=== PATIENT | male | born 1965 | race Caucasian/White ===

== ENCOUNTER 2018-11-03 19:17 | Inpatient (IN) ==
--- NOTE | 2018-11-03 19:32 | Emergency Department Note ---
Disposition Clinical Impression: Elevated brain natriuretic peptide (BNP) level Chest pain Qualifiers: Chest pain type: unspecified Qualified Code(s): R07.9 - Chest pain, unspecified Volume overload Qualifiers: Hypervolemia type: unspecified Qualified Code(s): E87.70 - Fluid overload, unspecified Disposition: Admitted As Inpatient Condition: Good Referrals: Nitish Mahoney DO [Primary Care Provider] - Time of Disposition: 20:39 General Adult HPI - General Stated complaint: CP/TIGHTNESS Time Seen by Provider: 11/03/18 19:21 Source: patient, family Mode of arrival: ambulatory Limitations: no limitations Nursing Notes Reviewed: Yes Vital Signs Reviewed: Yes - History of Present Illness HPI Narrative: Patient is a 53-year-old male that presents the emergency department with reports of chest tightness located in the center of his chest. Patient states that it did radiate up into his left shoulder. Patient also reports shortness of breath and diaphoresis. Patient denies any nausea. Patient states that he has never had an SD or required stents with has had prior cardiac catheterization. Patient states that he does have a history of atrial fibrillation and has a pacemaker and has had a prior cardiac ablation. Patient also states that he has had increased swelling in bilateral lower tremors and takes 80 mg of Lasix a day. Patient states that she has had swelling and some small blisters on his legs that are broken open and had started to drain. - Related Data Home Medications Medication Instructions Recorded Confirmed Aspirin Enteric Coated [Aspirin EC] 81 mg PO QAM 02/06/15 02/06/15 Carvedilol [Coreg] 25 mg PO BID 02/06/15 02/06/15 Cyclobenzaprine [Flexeril] 10 mg PO QPM 02/06/15 02/06/15 Furosemide [Lasix] 40 mg PO BID 02/06/15 02/06/15 Warfarin [Coumadin] 2.5 mg PO Q48H PRN 02/06/15 02/06/15 Warfarin [Coumadin] 5 mg PO Q48H PRN 02/06/15 02/06/15 metFORMIN [Glucophage] 1,000 mg PO BID 02/06/15 02/06/15 Gabapentin [Neurontin] 100 mg PO 04/16/18 GlipiZIDE [Glucotrol Xl] 2.5 mg PO 04/16/18 Previous Rx's Medication Instructions Recorded cephALEXin [Cephalexin] 500 mg PO BID #20 tablet 04/16/18 Allergies Allergy/AdvReac Type Severity Reaction Status Date / Time No Known Allergies Allergy Verified 04/16/18 17:16 All systems ED: reviewed and negative except as stated. Constitutional: Denies: fever Cardiovascular: Reports: chest pain Respiratory: Reports: dyspnea Gastrointestinal: Denies: nausea, vomiting Neurological: Denies: weakness, numbness, paresthesias Past Medical History - Past Medical History Medical history: Reports: atrial fibrillation, diabetes Psychiatric history: Reports: no psych history - Social History Smoking Status: Never smoker Smokeless Tobacco Status: No Alcohol use: Reports: none Drug use: Reports: none Physical Exam - General Limitations: no limitations General appearance: alert, in no apparent distress - Head Head exam: atraumatic, normocephalic - Eye Eye exam: Present: normal appearance, EOMI - Neck Neck exam: Present: normal inspection, full ROM, trachea midline - Respiratory Respiratory exam: Present: normal lung sounds bilaterally. Absent: respiratory distress, wheezes - Cardiovascular Cardiovascular exam: Present: regular rate, normal rhythm, normal heart sounds, +S1, +S2 - Abdominal Exam Abdominal exam: Present: soft, Non-Tender, normal bowel sounds - Extremities Exam Extremities exam: Present: other (Patient has blisters on bilateral lower extremities. The blister on the left is open and draining.) - Neurological Exam Neurological exam: Present: alert, oriented X3 - Psychiatric Psychiatric exam: Present: normal affect, normal mood - Skin Skin exam: Present: warm, dry, other (Draining blisters on left lwoer extremities. ) Course Vital Signs Pulse Rate 70 11/03/18 19:39 Respiratory Rate 18 11/03/18 19:39 Blood Pressure 181/99 11/03/18 19:39 O2 Sat by Pulse Oximetry 95 11/03/18 19:39 Temperature 98.2 F 11/03/18 19:40 Pulse Rate 71 11/03/18 19:52 Respiratory Rate 18 11/03/18 19:52 Blood Pressure 155/77 11/03/18 19:52 O2 Sat by Pulse Oximetry 94 11/03/18 19:52 Oxygen Delivery Oxygen Delivery Room Air Medical Decision Making - MDM Narrative Medical decision making narrative: Due the patient presenting to the emergency department with reports of chest pain we will obtain basic laboratory testing, chest x-ray and EKG. patient's laboratory testing shows an elevated BNP. Troponin is negative. EKG did not show any acute ischemic changes. Patient patient's chest x-ray shows some cardiomegaly with vascular congestion. No signs of pneumonia or overt pulmonary edema. Patient will be admitted to the hospital due to a heart score of 4 and having chest pain while present here in the emergency department as well as having exertional component there is concern this could potentially be cardiac related. We will recommended the patient be admitted for trending of his troponin. Patient's family at bedside are in agreement with this plan. Patient's chest pain had improved with the nitroglycerin here in the emergency department. Called and spoke with the admitting hospitalist Dr. Medrano and he h as accepted the patient to their service. Patient will be admitted to the hospital for further evaluation and management. - Medical Records Medical records reviewed: Yes I reviewed the patient's medical records. - Lab Data Lab results reviewed: Yes I reviewed the patient's lab results. Result diagrams: 11/03/18 19:33 11/03/18 19:33 Lab Results 11/03/18 11/03/18 11/03/18 Range/Units 19:33 19:33 19:33 WBC 7.9 (4.3-11.1) K/mcL RBC 4.31 (4.19-5.50) M/mcL Hgb 13.7 (12.9-16.9) g/dL Hct 42.2 (37.5-50.1) % MCV 97.9 (83.0-100.0) fL MCH 31.8 (28.0-33.3) pg MCHC 32.5 (31.6-35.5) g/dL RDW 14.3 (11.5-14.5) % Plt Count 247 (140-400) K/mcL MPV 9.6 (9.4-12.4) fL Immature Gran % 0.3 (0-4) % Seg Neutrophils % 67.0 % Lymphocytes % 17.8 % Monocytes % 11.4 % Eosinophils % 3.0 % Basophils % 0.5 % Neutrophils # 5.3 (1.6-8.9) K/mcL Lymphocytes # 1.4 (0.6-4.6) K/mcL Monocytes # 0.9 (0.0-1.3) K/mcL Eosinophils # 0.2 (0.0-0.6) K/mcL Basophils # 0.0 (0.0-0.2) K/mcL PT 36.6 H (9.4-12.1) Seconds INR 3.2 APTT 56.1 H (26.0-36.0) Seconds Sodium (136-145) mEq/L Potassium (3.5-5.1) mEq/L Chloride (98-107) mEq/L Carbon Dioxide (23-29) mEq/L BUN (6-20) mg/dL Creatinine (0.70-1.30) mg/dL Est GFR ( Amer) (> 60) Est GFR (Non-Af Amer) (> 60) BUN/Creatinine Ratio (6-26) Glucose (70-105) mg/dL Calculated Osmolality (280-300) Calcium (8.6-10.3) mg/dL Troponin I (< 0.04) ng/mL B-Natriuretic Peptide 161 H (Less than 100) pg/mL 11/03/18 Range/Units 19:33 WBC (4.3-11.1) K/mcL RBC (4.19-5.50) M/mcL Hgb (12.9-16.9) g/dL Hct (37.5-50.1) % MCV (83.0-100.0) fL MCH (28.0-33.3) pg MCHC (31.6-35.5) g/dL RDW (11.5-14.5) % Plt Count (140-400) K/mcL MPV (9.4-12.4) fL Immature Gran % (0-4) % Seg Neutrophils % % Lymphocytes % % Monocytes % % Eosinophils % % Basophils % % Neutrophils # (1.6-8.9) K/mcL Lymphocytes # (0.6-4.6) K/mcL Monocytes # (0.0-1.3) K/mcL Eosinophils # (0.0-0.6) K/mcL Basophils # (0.0-0.2) K/mcL PT (9.4-12.1) Seconds INR APTT (26.0-36.0) Seconds Sodium 136 (136-145) mEq/L Potassium 4.2 (3.5-5.1) mEq/L Chloride 98 (98-107) mEq/L Carbon Dioxide 32 H (23-29) mEq/L BUN 17 (6-20) mg/dL Creatinine 1.03 (0.70-1.30) mg/dL Est GFR ( Amer) > 60 (> 60) Est GFR (Non-Af Amer) > 60 (> 60) BUN/Creatinine Ratio 17 (6-26) Glucose 113 H (70-105) mg/dL Calculated Osmolality 284 (280-300) Calcium 9.2 (8.6-10.3) mg/dL Troponin I < 0.03 (< 0.04) ng/mL B-Natriuretic Peptide (Less than 100) pg/mL - Radiology Data Radiology results reviewed: Yes I reviewed the patient's radiology results. Chest X-Ray 11/03/18 20:18 IMPRESSION: Cardiomegaly with pulmonary vascular congestion D/ / Duane Hawkins MD / Duane Hawkins MD Interpreting Provider: Duane Hawkins MD - EKG Data EKG #1 EKG attestation: Yes I reviewed and interpreted this EKG. EKG results narrative: EKG shows an accelerated junctional rhythm at a rate of 71 beats per minute, QRS duration 165, QTC of 479. There is no evidence of STEMI and EKG. Attestation Statement - Attestation Attestation: Joe Cheung D.O., examined this patient and my medical decision-making was reviewed with the Resident Physician. I agree with the documented findings, disposition and treatment plan as described except to the extent set forth below.
[2018-11-03] MEDS ORDERED: Aspirin 81 MG TAB.CHEW PO STA (19:33)
[2018-11-03] MEDS: Nitroglycerin 0.4 MG TAB.SUBL SL SCH ×2 (19:47→22:54)
[2018-11-03 19:51] LABS: Basophils % 0.5 %; Eosinophils # 0.2 K/mcL (0.0-0.6); Hematocrit 42.2 % (37.5-50.1); Hemoglobin 13.7 g/dL (12.9-16.9); Immature Granulocytes % 0.3 % (0-4); Lymphocytes # 1.4 K/mcL (0.6-4.6); Lymphocytes % 17.8 %; Mean Corpuscular HGB Conc 32.5 g/dL (31.6-35.5); Mean Corpuscular Hemoglobin 31.8 pg (28.0-33.3); Mean Corpuscular Volume 97.9 fL (83.0-100.0); Mean Platelet Volume 9.6 fL (9.4-12.4); Monocytes # 0.9 K/mcL (0.0-1.3); Monocytes % 11.4 %; Neutrophils # 5.3 K/mcL (1.6-8.9); Platelet Count 247 K/mcL (140-400); Red Blood Count 4.31 M/mcL (4.19-5.50); Red Cell Distribution Width 14.3 % (11.5-14.5); White Blood Count 7.9 K/mcL (4.3-11.1)
[2018-11-03 19:59] LABS: INR 3.2; Prothrombin Time 36.6 Seconds (9.4-12.1)
[2018-11-03 20:01] LABS: Activated Partial Thrombo Time 56.1 Seconds (26.0-36.0)
--- NOTE | 2018-11-03 20:02 | Emergency Department Note ---
Disposition Clinical Impression: Chest pain Qualifiers: Chest pain type: unspecified Qualified Code(s): R07.9 - Chest pain, unspecified Volume overload Qualifiers: Hypervolemia type: unspecified Qualified Code(s): E87.70 - Fluid overload, unspecified Disposition: Admitted As Inpatient Condition: Good Referrals: Nitish Mahoney DO [Primary Care Provider] - Time of Disposition: 20:31 General Adult HPI - General Chief complaint: ED Chest Pain Stated complaint: CP/TIGHTNESS Time Seen by Provider: 11/03/18 19:21 Source: patient, family Mode of arrival: ambulatory Limitations: no limitations - History of Present Illness Pain Scale: 4 - Related Data Home Medications Medication Instructions Recorded Confirmed Aspirin Enteric Coated [Aspirin EC] 81 mg PO QAM 02/06/15 02/06/15 Carvedilol [Coreg] 25 mg PO BID 02/06/15 02/06/15 Cyclobenzaprine [Flexeril] 10 mg PO QPM 02/06/15 02/06/15 Furosemide [Lasix] 40 mg PO BID 02/06/15 02/06/15 Warfarin [Coumadin] 2.5 mg PO Q48H PRN 02/06/15 02/06/15 Warfarin [Coumadin] 5 mg PO Q48H PRN 02/06/15 02/06/15 metFORMIN [Glucophage] 1,000 mg PO BID 02/06/15 02/06/15 Gabapentin [Neurontin] 100 mg PO 04/16/18 GlipiZIDE [Glucotrol Xl] 2.5 mg PO 04/16/18 Previous Rx's Medication Instructions Recorded cephALEXin [Cephalexin] 500 mg PO BID #20 tablet 04/16/18 Allergies Allergy/AdvReac Type Severity Reaction Status Date / Time No Known Allergies Allergy Verified 04/16/18 17:16 Constitutional: Denies: fever Cardiovascular: Reports: chest pain Respiratory: Reports: dyspnea Gastrointestinal: Denies: nausea, vomiting Neurological: Denies: weakness, numbness, paresthesias Past Medical History - Past Medical History Medical history: Reports: atrial fibrillation, diabetes Psychiatric history: Reports: no psych history - Social History Smoking Status: Never smoker Smokeless Tobacco Status: No Alcohol use: Reports: none Drug use: Reports: none Physical Exam - General Limitations: no limitations General appearance: alert, in no apparent distress Course Vital Signs Pulse Rate 70 11/03/18 19:39 Respiratory Rate 18 11/03/18 19:39 Blood Pressure 181/99 11/03/18 19:39 O2 Sat by Pulse Oximetry 95 11/03/18 19:39 Temperature 98.2 F 11/03/18 19:40 Pulse Rate 71 11/03/18 19:52 Respiratory Rate 18 11/03/18 19:52 Blood Pressure 155/77 11/03/18 19:52 O2 Sat by Pulse Oximetry 94 11/03/18 19:52 Oxygen Delivery Oxygen Delivery Room Air Medical Decision Making - Lab Data Result diagrams: 11/03/18 19:33 11/03/18 19:33 Lab Results 11/03/18 11/03/18 11/03/18 Range/Units 19:33 19:33 19:33 WBC 7.9 (4.3-11.1) K/mcL RBC 4.31 (4.19-5.50) M/mcL Hgb 13.7 (12.9-16.9) g/dL Hct 42.2 (37.5-50.1) % MCV 97.9 (83.0-100.0) fL MCH 31.8 (28.0-33.3) pg MCHC 32.5 (31.6-35.5) g/dL RDW 14.3 (11.5-14.5) % Plt Count 247 (140-400) K/mcL MPV 9.6 (9.4-12.4) fL Immature Gran % 0.3 (0-4) % Seg Neutrophils % 67.0 % Lymphocytes % 17.8 % Monocytes % 11.4 % Eosinophils % 3.0 % Basophils % 0.5 % Neutrophils # 5.3 (1.6-8.9) K/mcL Lymphocytes # 1.4 (0.6-4.6) K/mcL Monocytes # 0.9 (0.0-1.3) K/mcL Eosinophils # 0.2 (0.0-0.6) K/mcL Basophils # 0.0 (0.0-0.2) K/mcL PT 36.6 H (9.4-12.1) Seconds INR 3.2 APTT 56.1 H (26.0-36.0) Seconds Sodium (136-145) mEq/L Potassium (3.5-5.1) mEq/L Chloride (98-107) mEq/L Carbon Dioxide (23-29) mEq/L BUN (6-20) mg/dL Creatinine (0.70-1.30) mg/dL Est GFR ( Amer) (> 60) Est GFR (Non-Af Amer) (> 60) BUN/Creatinine Ratio (6-26) Glucose (70-105) mg/dL Calculated Osmolality (280-300) Calcium (8.6-10.3) mg/dL Troponin I (< 0.04) ng/mL B-Natriuretic Peptide 161 H (Less than 100) pg/mL 11/03/18 Range/Units 19:33 WBC (4.3-11.1) K/mcL RBC (4.19-5.50) M/mcL Hgb (12.9-16.9) g/dL Hct (37.5-50.1) % MCV (83.0-100.0) fL MCH (28.0-33.3) pg MCHC (31.6-35.5) g/dL RDW (11.5-14.5) % Plt Count (140-400) K/mcL MPV (9.4-12.4) fL Immature Gran % (0-4) % Seg Neutrophils % % Lymphocytes % % Monocytes % % Eosinophils % % Basophils % % Neutrophils # (1.6-8.9) K/mcL Lymphocytes # (0.6-4.6) K/mcL Monocytes # (0.0-1.3) K/mcL Eosinophils # (0.0-0.6) K/mcL Basophils # (0.0-0.2) K/mcL PT (9.4-12.1) Seconds INR APTT (26.0-36.0) Seconds Sodium 136 (136-145) mEq/L Potassium 4.2 (3.5-5.1) mEq/L Chloride 98 (98-107) mEq/L Carbon Dioxide 32 H (23-29) mEq/L BUN 17 (6-20) mg/dL Creatinine 1.03 (0.70-1.30) mg/dL Est GFR ( Amer) > 60 (> 60) Est GFR (Non-Af Amer) > 60 (> 60) BUN/Creatinine Ratio 17 (6-26) Glucose 113 H (70-105) mg/dL Calculated Osmolality 284 (280-300) Calcium 9.2 (8.6-10.3) mg/dL Troponin I < 0.03 (< 0.04) ng/mL B-Natriuretic Peptide (Less than 100) pg/mL Attestation Statement - Attestation Attestation: Joe Cheung D.O., examined this patient and my medical decision-making was reviewed with the Resident Physician. I agree with the documented findings, disposition and treatment plan as described except to the extent set forth below. 53-year-old male with a history of atrial fibrillation status post ablation on Coumadin, CHF on 40 mg Lasix twice daily who presents with a chief complaint of chest pain in lower extremity swelling. Pain began around 2:30 this afternoon. Also reports a 20 pound weight gain. Patient reports exertional dyspnea. No prior history of CAD, DVT or PE. No other complaints. General: Alert, no acute distress HENT: Normocephalic, Atraumatic Neck: No JVD Cardiovascular: Regular rate and rhythm. No appreciable murmurs Respiratory: Diminished breath sounds No wheezing/rhonchi Abdominal: Soft, non tender. No peritoneal findings Extremities: 2+ bilateral pitting edema in the lower extremities. He has a lesion to the left lower extremity with serous drainage. Neuro: Alert, Mentating appropriately, No focal deficits Skin: Warm, Dry Plan: EKG, chest x-ray and labs including troponin. Anticipate admission. ED Procedure Note: EKG interpretation - I agree with the resident physician's documentation and interpretation of the patient's EKG. Junctional rhythm with a rate of 71 beats or minute. Left axis deviation. Prolonged QRS duration of 165. Poor R wave progression. No gross ST elevations or depressions. Imaging labs reviewed. He does have some pulmonary edema. BNP is slightly elevated. Patient appears volume overloaded. We will give some Lasix. Patient will be admitted for chest pain, volume overload.
[2018-11-03 20:12] LABS: BUN/Creatinine Ratio 17 (6-26); Blood Urea Nitrogen 17 mg/dL (6-20); Calcium 9.2 mg/dL (8.6-10.3); Carbon Dioxide 32 mEq/L (23-29); Chloride 98 mEq/L (98-107); Glucose 113 mg/dL (70-105); Osmolality,Calculated 284 (280-300); Potassium 4.2 mEq/L (3.5-5.1); Sodium 136 mEq/L (136-145); Troponin I < 0.03 ng/mL (< 0.04); eGFR For African Americans > 60 (> 60); eGFR For Non-African Americans > 60 (> 60)
[2018-11-03] MEDS ORDERED: Furosemide 40 MG/4 ML VIAL IVP ONE (20:29)
[2018-11-03] MEDS ORDERED: Isovue-370 500 ML BOTTLE IVP ONE (22:02)
[2018-11-03] MEDS ORDERED: Dextrose Gel 15 GM/37.5 ML TUBE PO PRN ×2 (22:08)
[2018-11-03] MEDS ORDERED: *HR* Dextrose 50 % in Water (Syg) 50 ML SYRINGE IVP PRN (22:08)
[2018-11-03] MEDS: Insulin LISPRO 300 UNITS/3 ML VIAL SQ SCH (22:53)
--- NOTE | 2018-11-04 00:54 | Internal Med History&Physical ---
Date of Encounter: 11/03/18 Time of Encounter: 22:00 Internal Medicine - H&P: HPI Chief complaint: sob/cp Admitted From: Home Plans for Post Hospital Care: Home History of present illness: Darrell Bowen is a 53-year-old morbidly obese man with obstructive sleep apnea, hypertension, diabetes and atrial fibrillation who presents to the emergency room with a complaint of chest tightness, shortness of breath and increasing lower extremity swelling. He says that the swelling has become so severe that it starts to throb and has developed blisters with drainage of fluid. He says he takes 80 mg of furosemide a day for the swelling. On arrival he was hemodynamically stable and lab work was grossly unremarkable. Chest x- ray revealed cardiomegaly with pulmonary vascular congestion. Serum troponin was negative. EKG showed a junctional rhythm which appears to be new in comparison to previous studies. He received one tablet of nitroglycerin, loading dose of aspirin and one dose of furosemide IV. At the time of my assessment he says he felt better on the only thing bothering him was a swelling in his legs. Vitals: Reviewed General: Morbidly obese man sitting up in bed in no acute distress. Skin: Hyperpigmented velvety skin at the nape of his neck. A large 5 cm circular pink colored lesion with scaly skin on the lateral aspect of his right lower leg. Multiple hyperkeratotic and scaly lesions on the extensor surfaces of his elbows, forearms and torso. HEENT: Moist mucous membranes. No conjunctivae pallor. Neck: No lymphadenopathy. No JVD. No carotid bruits. No palpable thyroid. Chest: Diminished thoracic expansion. Reduced breath sounds bilaterally. Heart: Normal S1 & S2; rhythmic. Abdomen: Protuberant, soft and non-tender to palpation. No peritoneal reaction. Extremities: 3+ pitting edema of both lower extremities with mild erythema noted. Skin breakdown on the left leg that appears more erythematous with yellowish/purulent discharge noted draining down the leg. Neurological: Awake, alert and oriented to person, place and time. No focal deficits. Psych: Affect appropriate. Assessment/Plan 1. Chest pain: We will monitor him on telemetry and obtain a repeat troponin for evaluation. He may benefit from a stress test as he reports chest pain of increasing frequency with exertion. For now continue antiplatelet therapy. 2. Shortness of breath: Suspect secondary to pulmonary edema and possible congestive heart failure. We will get an echo for evaluation of his EF. Start IV furosemide 40 mg twice a day and assess response to this. Strict Is and Os and low-salt diet. 3. Lower extremity edema: Suspect secondary to venous stasis and volume overload from his heart failure. He has developed skin breakdown and some erythematous changes with mild drainage that concerns me for an inflammatory/infectious process brewing. We will get a CT scan to evaluate for cellulitic changes. It is strictly a superficial skin/soft tissue infection we will start doxycycline 100 mg twice a day. 4. Tinea corporis: This appears to be the cause of the lesion on the lateral aspect of the right lower leg. Start topical antifungal to the area twice a day. 5. Psoriatic skin lesions: Suspected to be the cause of the skin changes noted on his forearms, elbows and upper body. He reports no history of this ailment but his acknowledges there may be a family history of this. I advised he be seen by a helmet hat brim cutter and shale miner blasting for further evaluation. 6. Atrial fibrillation: Status post ablation procedure and has a pacemaker inserted. Warfarin dosing per pharmacy. 7. Diabetes: He has signs of a metabolic syndrome. Most recent A1C is 6.7% which is excellent control. We will have him on insulin sliding scale for now. Past Med Surg Social Fam HX - Past Medical History Medical history: atrial fibrillation, diabetes Additional medical history: pacemaker Psychiatric history: no psych history - Past Surgical History Surgical History: appendectomy Additional surgical history: HEART CATH NO STENTS, MAZE 2006 - Social History Smoking Status: Former smoker Smokeless Tobacco Status: No Alcohol use: rarely Drug use: none - Family History Mother Living Status: Hx Family Cardiac Disorders: Yes (AFIB) Hx Family Endocrine Disorder: Yes (diabetes) Hx Family Psychosocial Disorders: Yes (Dementia) Hx Family Medical Disorders: Yes (HTN) Father Living Status: Hx Family Endocrine Disorder: Yes (DM) Internal Medicine - H&P: Meds Aspirin Enteric Coated [Aspirin EC] 81 mg PO QAM 02/06/15 [History] Carvedilol [Coreg] 25 mg PO BID 02/06/15 [History] Furosemide [Lasix] 40 mg PO BID 02/06/15 [History] metFORMIN [Glucophage] 1,000 mg PO BID 02/06/15 [History] Gabapentin [Neurontin] 100 mg PO DAILY 03/10/19 [History] GlipiZIDE [Glucotrol Xl] 5 mg PO DAILY 04/16/18 [History] Tamsulosin [Flomax] 0.4 mg PO DAILY 11/03/18 [History] Warfarin [Coumadin] 2.5 mg PO QTUTH 11/03/18 [History] Warfarin [Coumadin] 5 mg PO SUMOWEFRSA 11/03/18 [History] Allergy/AdvReac Type Severity Reaction Status Date / Time No Known Allergies Allergy Verified 04/16/18 17:16 All Systems PM: A 10-system review of systems was performed and is negative for pertinent fi ndings except as documented above in the HPI. - Constitutional Vitals: Temp Pulse Resp BP Pulse Ox 98.5 F 73 16 162/104 93 11/03/18 22:08 11/03/18 22:08 11/03/18 22:08 11/03/18 22:08 11/03/18 22:45 Exam: . Internal Med - H&P Results - Labs CBC & Chem 7: 11/03/18 19:33 11/03/18 19:33 Labs: Short CBC 11/03/18 Range/Units 19:33 WBC 7.9 (4.3-11.1) K/mcL Hgb 13.7 (12.9-16.9) g/dL Hct 42.2 (37.5-50.1) % Plt Count 247 (140-400) K/mcL Neutrophils # 5.3 (1.6-8.9) K/mcL BMP 11/03/18 19:33 Sodium 136 Potassium 4.2 Chloride 98 Carbon Dioxide 32 H BUN 17 Creatinine 1.03 Glucose 113 H Calcium 9.2 Cardiac Enzymes 11/03/18 Range/Units 19:33 Troponin I < 0.03 (< 0.04) ng/mL - Impressions ITS Impressions Chest X-Ray 11/03/18 20:18 IMPRESSION: Cardiomegaly with pulmonary vascular congestion D/ / Duane Hawkins MD / Duane Hawkins MD Interpreting Provider: Duane Hawkins MD - Time Spent With Patient Total time spent is greater than 50% in coordination of care (as documented) at patient's floor/unit and/or counseling patient:
[2018-11-04] MEDS ORDERED: Perflutren Lipid Microsphere 1.3 ML in 0.9 % Sodium Chloride 8.7 ML IVP ONE (07:11)
[2018-11-04 08:08] LABS: INR 2.5; Prothrombin Time 28.6 Seconds (9.4-12.1)
[2018-11-04 08:29] LABS: BUN/Creatinine Ratio 15 (6-26); Blood Urea Nitrogen 15 mg/dL (6-20); Calcium 9.3 mg/dL (8.6-10.3); Carbon Dioxide 31 mEq/L (23-29); Chloride 97 mEq/L (98-107); Glucose 147 mg/dL (70-105); Osmolality,Calculated 286 (280-300); Potassium 3.9 mEq/L (3.5-5.1); Sodium 136 mEq/L (136-145); Troponin I < 0.03 ng/mL (< 0.04); eGFR For African Americans > 60 (> 60); eGFR For Non-African Americans > 60 (> 60)
[2018-11-04] MEDS ORDERED: Furosemide 40 MG TABLET PO SCH (09:00)
[2018-11-04] MEDS: Insulin LISPRO 300 UNITS/3 ML VIAL SQ SCH ×4 (09:05→20:17)
[2018-11-04] MEDS: Doxycycline 100 MG CAPSULE PO SCH ×2 (09:09→19:57)
[2018-11-04] MEDS: Aspirin Enteric Coated 81 MG Tablet PO SCH (09:09)
[2018-11-04] MEDS: Furosemide 40 MG/4 ML VIAL IVP SCH ×2 (09:09→19:57)
[2018-11-04] MEDS: Gabapentin 100 MG CAPSULE PO SCH (09:09)
[2018-11-04] MEDS: Clotrimazole 1% CRM 15 GM TUBE TP SCH ×2 (09:45→19:58)
--- NOTE | 2018-11-04 11:27 | Internal Med Progress Note ---
Hospitalist Progress Note - Encounter Date of Encounter: 11/04/18 Time of Encounter: 11:24 - Subjective Interval History: No acute events. Patient states he is breathing better. - Exam Vitals: Temp Pulse Resp BP Pulse Ox 98.0 F 73 16 125/74 90 11/04/18 11:13 11/04/18 11:13 11/04/18 11:13 11/04/18 11:13 11/04/18 11:13 Exam: General: Morbidly obese man sitting up in bed in no acute distress. Skin: Hyperpigmented velvety skin at the nape of his neck. A large 5 cm circular pink colored lesion with scaly skin on the lateral aspect of his right lower leg. Multiple hyperkeratotic and scaly lesions on the extensor surfaces of his elbows, forearms and torso. HEENT: Moist mucous membranes. No conjunctivae pallor. Neck: No lymphadenopathy. No JVD. No carotid bruits. No palpable thyroid. Chest: Diminished thoracic expansion. Reduced breath sounds bilaterally. Heart: Normal S1 & S2; rhythmic. Abdomen: Protuberant, soft and non-tender to palpation. No peritoneal reaction. Extremities: 3+ pitting edema of both lower extremities with mild erythema noted. Skin breakdown on the left leg that appears more erythematous with yellowish/purulent discharge noted draining down the leg. after being wrapped, some drainage noted through the dressing as well. Neurological: Awake, alert and oriented to person, place and time. No focal deficits. Psych: Affect appropriate. - Assessment and Plan (1) Chest pain Current Visit: Yes Status: Acute Assessment and Plan: Will need cardiac workup. Echocardiogram study poor due to patient body habitus, LVEF 50-55%. Initial troponin negative, EKG showed junctional rhythm. Presentation is concerning for ACS. - Stress test - Treatment of CHF as noted. (2) Acute heart failure Current Visit: Yes Status: Acute Assessment and Plan: Echocardiogram done showing LVEF 50-55% , limited exam due to body habitus, indeterminate diastolic function, paced rhythm, valves not well visualized. BNP elevated 167 on admission, chest x-ray with cardiomegaly and pulm vasc congestion. Fluid restriction diet Continue Lasix monitor I/Os. (3) Diabetes Current Visit: Yes Status: Acute (4) Tinea corporis Current Visit: Yes Status: Acute Assessment and Plan: Topical clotrimazole (5) Atrial fibrillation, chronic Current Visit: No Status: Acute Assessment and Plan: Coumadin, Coreg. Rate controlled. (6) Left leg cellulitis Current Visit: Yes Status: Acute Assessment and Plan: Suspect infection superimpposed on lower extremity edema. Continue Doxycycline and diuresis as above. - Time Spent with Patient Total time spent is greater than 50% in coordination of care (as documented) at patient's floor/unit and/or counseling patient: Internal Medicine: Result - Labs CBC & Chem 7: 11/03/18 19:33 11/04/18 06:52 Labs: Short CBC 11/03/18 Range/Units 19:33 WBC 7.9 (4.3-11.1) K/mcL Hgb 13.7 (12.9-16.9) g/dL Hct 42.2 (37.5-50.1) % Plt Count 247 (140-400) K/mcL Neutrophils # 5.3 (1.6-8.9) K/mcL BMP 11/03/18 11/04/18 19:33 06:52 Sodium 136 136 Potassium 4.2 3.9 Chloride 98 97 L Carbon Dioxide 32 H 31 H BUN 17 15 Creatinine 1.03 0.99 Glucose 113 H 147 H Calcium 9.2 9.3 Cardiac Enzymes 11/03/18 11/04/18 Range/Units 19:33 06:52 Troponin I < 0.03 < 0.03 (< 0.04) ng/mL - ABG Interpretation ABG results: PT/INR, D-dimer PT 28.6 Seconds (9.4-12.1) H 11/04/18 06:52 - Impressions Impressions Chest X-Ray 11/03/18 20:18 IMPRESSION: Cardiomegaly with pulmonary vascular congestion D/ / Duane Hawkins MD / Duane Hawknis MD Interpreting Provider: Duane Hawkins MD Lower Extremity CT 11/04/18 01:51 IMPRESSION: 1. Extensive subcutaneous fat stranding of the left lower extremity compatible with cellulitis versus bland edema. No drainable fluid collection. 2. Extensive subcutaneous fat stranding also noted within the visualized aspects of the right lower extremity. 3. No acute osseous abnormality. 4. Degenerative changes of the bilateral knees with small joint effusions. D/ / Tanner Santiago MD / Tanner Santiago MD Interpreting Provider: Tanner Santiago MD Echocardiogram 11/04/18 08:30 Impressions: Technically sub-optimal due to body habitus. Most structures were not well visualized. LVEF 50-55%. Mildly dilated left ventricle. Indeterminate diastolic function. Atypical septal motion consistent with paced rhythm. Right ventricle was not well visualized. Device per reports, leads not well visualized. Valves were not well visualized. Left Ventricular Wall Motion: Rest Echo Findings All wall segments showed normal motion. Findings: Study Quality * Technically sub-optimal due to body habitus. Most structures were not well visualized. ECG Findings * Paced rhythm. Left Ventricle * LVEF 50-55%. * Mildly dilated left ventricle. * Indeterminate diastolic function. * Atypical septal motion consistent with paced rhythm. Right Ventricle * Right ventricle was not well visualized. Left Atrium * Left atrium is not well visualized. Right Atrium * Right atrium is not well visualized. Interatrial Septum * Interatrial septum not well evaluated. Aortic Valve * Aortic valve not well visualized. * No aortic regurgitation in the parasternal view. Mitral Valve * Normal mitral valve structure. * No mitral regurgitation or stenosis in the parasternal view. Tricuspid Valve * Tricuspid valve not well visualized. * Trace tricuspid regurgitation. Pulmonic Valve * Pulmonic valve not well visualized. Aorta * Not well visualized. Pericardium * The pericardium appears normal. IVC * The IVC is dilated. * > 50% respiratory change Pulmonary Artery * Pulmonary artery not well visualized. Device lead * Device per reports, leads not well visualized. 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
[2018-11-04] MEDS ORDERED: Warfarin perPT PO PRN (18:00)
[2018-11-04] MEDS ORDERED: *HR* Warfarin 2.5 MG TABLET PO ONE (18:00)
[2018-11-05 03:03] LABS: Prothrombin Time 22.2 Seconds (9.4-12.1)
[2018-11-05 03:20] LABS: BUN/Creatinine Ratio 19 (6-26); Blood Urea Nitrogen 20 mg/dL (6-20); Calcium 9.1 mg/dL (8.6-10.3); Carbon Dioxide 31 mEq/L (23-29); Chloride 97 mEq/L (98-107); Glucose 175 mg/dL (70-105); Osmolality,Calculated 289 (280-300); Potassium 3.9 mEq/L (3.5-5.1); Sodium 136 mEq/L (136-145); eGFR For African Americans > 60 (> 60); eGFR For Non-African Americans > 60 (> 60)
[2018-11-05] MEDS ORDERED: Acetaminophen 325 MG TABLET PO ONE (06:37)
[2018-11-05] MEDS: Aspirin Enteric Coated 81 MG Tablet PO SCH (08:14)
[2018-11-05] MEDS: Gabapentin 100 MG CAPSULE PO SCH (08:14)
[2018-11-05] MEDS: Doxycycline 100 MG CAPSULE PO SCH ×2 (08:14→21:48)
[2018-11-05] MEDS: Furosemide 40 MG/4 ML VIAL IVP SCH ×2 (08:15→21:48)
[2018-11-05] MEDS: Clotrimazole 1% CRM 15 GM TUBE TP SCH ×2 (08:15→21:45)
[2018-11-05] MEDS: Insulin LISPRO 300 UNITS/3 ML VIAL SQ SCH ×4 (09:35→20:39)
--- NOTE | 2018-11-05 12:25 | Internal Med Progress Note ---
Hospitalist Progress Note - Encounter Date of Encounter: 11/05/18 Time of Encounter: 12:25 - Subjective Interval History: No acute events. States breathing is slightly better. Edema improving but not at dry weight. Left leg pain/erythema better as well. Had an episode of oxygen desaturation overnight and needed NC supplemental O2 now back to room air. - Exam Vitals: Temp Pulse Resp BP Pulse Ox 98.6 F 70 16 121/86 95 11/05/18 11:05 11/05/18 11:05 11/05/18 11:05 11/05/18 11:05 11/05/18 11:05 Exam: General: Morbidly obese man sitting up in bed in no acute distress. Skin: Hyperpigmented velvety skin at the nape of his neck. A large 5 cm circul ar pink colored lesion with scaly skin on the lateral aspect of his right lower leg. Multiple hyperkeratotic and scaly lesions on the extensor surfaces of his elbows, forearms and torso. HEENT: Moist mucous membranes. No conjunctivae pallor. Neck: No lymphadenopathy. No JVD. No carotid bruits. No palpable thyroid. Chest: Diminished thoracic expansion. Improved air exchange compared to yesterday's exam. Heart: Normal S1 & S2; rhythmic. Abdomen: Protuberant, soft and non-tender to palpation. No peritoneal reaction. Extremities: 3+ pitting edema of both lower extremities with mild erythema noted on the left. Skin breakdown on the left leg is erythematous, dressing on. No large amount of drainage compared to yesterday. Neurological: Awake, alert and oriented to person, place and time. No focal deficits. Psych: Affect appropriate. - Assessment and Plan (1) Chest pain Current Visit: Yes Status: Acute Assessment and Plan: Will need cardiac workup. Echocardiogram study poor due to patient body habitus, LVEF 50-55%. Initial troponin negative, EKG showed junctional rhythm. Presentation is concerning for ACS. - Stress test - Treatment of CHF as noted. (2) Acute heart failure Current Visit: Yes Status: Acute Assessment and Plan: Echocardiogram done showing LVEF 50-55% , limited exam due to body habitus, indeterminate diastolic function, paced rhythm, valves not well visualized. BNP elevated 167 on admission, chest x-ray with cardiomegaly and pulm vasc congest ion. Good urine output, not at dry weight yet, still having some symptoms of dyspnea. Having oxygen desaturation at night. Though of note, he does have VERNON and does not wear CPAP and this is most likely cause of O2 desats at night. Fluid restriction diet Continue Lasix monitor I/Os. (3) Diabetes Current Visit: Yes Status: Acute (4) Tinea corporis Current Visit: Yes Status: Acute Assessment and Plan: Topical clotrimazole (5) Atrial fibrillation, chronic Current Visit: No Status: Acute Assessment and Plan: Coumadin, Coreg. Rate controlled. (6) Left leg cellulitis Current Visit: Yes Status: Acute Assessment and Plan: Suspect infection superimpposed on lower extremity edema. Continue Doxycycline and diuresis as above. - Time Spent with Patient Total time spent is greater than 50% in coordination of care (as documented) at patient's floor/unit and/or counseling patient: Internal Medicine: Result - Labs CBC & Chem 7: 11/03/18 19:33 11/05/18 02:32 Labs: BMP 11/05/18 02:32 Sodium 136 Potassium 3.9 Chloride 97 L Carbon Dioxide 31 H BUN 20 Creatinine 1.03 Glucose 175 H Calcium 9.1 - ABG Interpretation ABG results: PT/INR, D-dimer PT 22.2 Seconds (9.4-12.1) H 11/05/18 02:32 Consult Discharge Plan - Plan Referrals: Nitish Mahoney DO [Primary Care Provider] - (Appointment has been requested. ) (1) Chest pain Qualifiers: Chest pain type: unspecified Qualified Code(s): R07.9 - Chest pain, unspecified (2) Acute heart failure Qualifiers: Heart failure type: diastolic Qualified Code(s): I50.31 - Acute diastolic (congestive) heart failure (3) Diabetes Qualifiers: Diabetes mellitus type: type 2 Diabetes mellitus assisted insulin use: uns pecified assisted insulin use status Diabetes mellitus complication status: without complication Qualified Code(s): E11.9 - Type 2 diabetes mellitus without complications
[2018-11-05] MEDS ORDERED: *HR* Warfarin 2.5 MG TABLET PO ONE (18:00)
[2018-11-06 01:53] LABS: BUN/Creatinine Ratio 19 (6-26); Blood Urea Nitrogen 21 mg/dL (6-20); Calcium 9.3 mg/dL (8.6-10.3); Carbon Dioxide 30 mEq/L (23-29); Chloride 97 mEq/L (98-107); Glucose 196 mg/dL (70-105); Osmolality,Calculated 290 (280-300); Potassium 3.8 mEq/L (3.5-5.1); Sodium 136 mEq/L (136-145); eGFR For African Americans > 60 (> 60); eGFR For Non-African Americans > 60 (> 60)
[2018-11-06 01:56] LABS: INR 1.8; Prothrombin Time 20.7 Seconds (9.4-12.1)
[2018-11-06] MEDS: Furosemide 40 MG/4 ML VIAL IVP SCH ×2 (08:52→20:14)
[2018-11-06] MEDS: Doxycycline 100 MG CAPSULE PO SCH ×2 (08:52→20:14)
[2018-11-06] MEDS: Gabapentin 100 MG CAPSULE PO SCH (08:52)
[2018-11-06] MEDS: Aspirin Enteric Coated 81 MG Tablet PO SCH (08:52)
[2018-11-06] MEDS: Insulin LISPRO 300 UNITS/3 ML VIAL SQ SCH ×4 (08:53→20:14)
[2018-11-06] MEDS: Clotrimazole 1% CRM 15 GM TUBE TP SCH ×2 (08:54→20:15)
--- NOTE | 2018-11-06 10:42 | Internal Med Progress Note ---
<Tatiana Martinez - Last Filed: 11/06/18 10:38> Hospitalist Progress Note - Encounter Date of Encounter: 11/06/18 Time of Encounter: 09:38 - Subjective Interval History: Mr. Whitley was examined sitting up in bed with his family in the room. He says that his "dyspnea has improved since they got the fluid off of him". His legs are less swollen and his blister are healing well and no longer painful. He complains of no dyspnea, chest pain, palpitations, nausea, vomiting, diarrhea, cough. - Exam Vitals: Temp Pulse Resp BP Pulse Ox 97.5 F L 70 18 153/92 93 11/06/18 07:20 11/06/18 07:20 11/06/18 07:20 11/06/18 07:20 11/06/18 07:20 Exam: General: Morbidly obese man sitting up in bed in no acute distress. Skin: Hyperpigmented velvety skin at the nape of his neck. A large 5 cm circular pink colored lesion with scaly skin on the lateral aspect of his right lower leg. Multiple hyperkeratotic and scaly lesions on the extensor surfaces of his elbows, forearms and torso. HEENT: Moist mucous membranes. No conjunctivae pallor. Neck: No lymphadenopathy. No JVD. No carotid bruits. No palpable thyroid. Chest: Diminished thoracic expansion. Improved air exchange compared to yesterday's exam. Heart: Normal S1 & S2; rhythmic. Abdomen: Protuberant, soft and non-tender to palpation. No peritoneal reaction. Extremities: 3+ pitting edema of both lower extremities with mild erythema noted on the left. Skin breakdown on the left leg is erythematous, dressing D/C/I. No large amount of drainage. Neurological: Awake, alert and oriented to person, place and time. No focal deficits. - Assessment and Plan (1) Chest pain Current Visit: Yes Status: Acute Assessment and Plan: Will need cardiac workup. Echocardiogram study poor due to patient body habitus, LVEF 50-55%. Initial troponin negative, EKG showed junctional rhythm. Presentation is concerning for ACS. - Stress test- denied because patient cannot lie flat - Treatment of CHF as noted. (2) Acute heart failure Current Visit: Yes Status: Acute Assessment and Plan: Echocardiogram done showing LVEF 50-55% , limited exam due to body habitus, indeterminate diastolic function, paced rhythm, valves not well visualized. BNP elevated 167 on admission, chest x-ray with cardiomegaly and pulm vasc congestion. Good urine output, not at dry weight yet, still having some symptoms of dyspnea but states they are his baseline. Having oxygen desaturation at night. Though of note, he does have VERNON and does not wear CPAP and this is most likely cause of O2 desats at night. Fluid restriction diet Continue Lasix monitor I/Os. (3) Diabetes Current Visit: Yes Status: Acute Assessment and Plan: Continue sliding scale (4) Left leg cellulitis Current Visit: Yes Status: Acute Assessment and Plan: Suspected infection with LE Edema. Continue Doxycycline and diuresis as above (5) Tinea corporis Current Visit: Yes Status: Acute Assessment and Plan: topical clotrimazole (6) Atrial fibrillation, chronic Current Visit: No Status: Acute Assessment and Plan: Coumadin, coreg, rate controlled. - Time Spent with Patient Total time spent is greater than 50% in coordination of care (as documented) at patient's floor/unit and/or counseling patient: Internal Medicine: Result - Labs CBC & Chem 7: 11/03/18 19:33 11/06/18 00:59 Labs: BMP 11/06/18 00:59 Sodium 136 Potassium 3.8 Chloride 97 L Carbon Dioxide 30 H BUN 21 H Creatinine 1.12 Glucose 196 H Calcium 9.3 - ABG Interpretation ABG results: PT/INR, D-dimer PT 20.7 Seconds (9.4-12.1) H 11/06/18 00:59 Consult Discharge Plan - Plan Referrals: Nitish Mahoney DO [Primary Care Provider] - 11/10/18 8:45 am () <Gary Juarez - Last Filed: 11/06/18 19:52> Hospitalist Progress Note - Encounter Date of Encounter: 11/06/18 - Exam Vitals: Temp Pulse Resp BP Pulse Ox 98.4 F 73 18 138/91 94 11/06/18 19:07 11/06/18 19:07 11/06/18 19:07 11/06/18 19:07 11/06/18 19:07 - Assessment and Plan (1) Chest pain Current Visit: Yes Status: Acute (2) Acute heart failure Current Visit: Yes Status: Acute (3) Diabetes Current Visit: Yes Status: Acute (4) Tinea corporis Current Visit: Yes Status: Acute (5) Atrial fibrillation, chronic Current Visit: No Status: Acute (6) Left leg cellulitis Current Visit: Yes Status: Acute - Time Spent with Patient Total time spent is greater than 50% in coordination of care (as documented) at patient's floor/unit and/or counseling patient: Internal Medicine: Result - Labs CBC & Chem 7: 11/03/18 19:33 11/06/18 00:59 Labs: BMP 11/06/18 00:59 Sodium 136 Potassium 3.8 Chloride 97 L Carbon Dioxide 30 H BUN 21 H Creatinine 1.12 Glucose 196 H Calcium 9.3 - ABG Interpretation ABG results: PT/INR, D-dimer PT 20.7 Seconds (9.4-12.1) H 11/06/18 00:59 - Attending Attestation I saw evaluated and examined this patient and reviewed objective data including labs and my medical decision-making was reviewed with the Resident Physician. I agree with the documented findings, disposition and treatment plan as described except to any changes set forth below. No acute events. Continues to improve. Could not tolerate stress test. Continue to diuresis, likely DC tomorrow. 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 care administrator insulin use: unspecified group home insulin use status Diabetes mellitus complication status: without complication Qualified Code(s): E11.9 - Type 2 diabetes mellitus without complications <Gary Juarez - Last Filed: 11/06/18 19:52> (1) Chest pain Qualifiers: Chest pain type: unspecified Qualified Code(s): R07.9 - Chest pain, unspecified (2) Acute heart failure Qualifiers: Heart failure type: diastolic Qualified Code(s): I50.31 - Acute diastolic (congestive) heart failure (3) Diabetes Qualifiers: Diabetes mellitus type: type 2 Diabetes mellitus long term care administrator insulin use: unspecified long term care administrator insulin use status Diabetes mellitus complication status: without complication Qualified Code(s): E11.9 - Type 2 diabetes mellitus without complications
--- NOTE | 2018-11-06 15:56 | Cardiology Consult Note ---
<Regino Isaac - Last Filed: 11/06/18 15:37> Date of Encounter: 11/06/18 Time of Encounter: 15:00 Assessment and Plan (1) Diastolic CHF Current Visit: Yes Status: Acute Patient with morbid obesity presents with increasing SOB, orthopnea, worsening peripheral edema and symptoms of chest pressure for several days duration. Has a history of Afib, s/p ablation with PPM, recently interrogated and found to be 99.8% ventricularly paced, set to 70bpm. EKG shows ventricularly paced rhythm. CXR found cardiomegaly with pulmonary vascular congestion. Echo was performed and was poor study d/t body habitus, but did reveal normal EF without overt wall motion abnormality, mildly dilated LV. Labs revealed BNP slightly elevated 161, troponin was negative x 2. Rest of lab work unremarkable. Patient has received IV diuresis with very good UOP, currently net -6L. Denies any chest pain on exam today. -Suspect patient is suffering from diastolic HF 2/2 morbid obesity and dietary indiscretion. -NO indications for further inpatient cardiac testing at this time. Patient denies exertional chest pain, no need for stress testing. Will rpt EKG. -Recommend continuing with IV diuresis at this time and as tolerable by kidneys. -Patient will need HF education on Discharge, will benefit from sodium restriction, fluid monitoring and daily weight checks. -Continue with strict I/O while inpatient. -Patient will benefit from stricter BP management as quite hypertensive during hospital stay. -Will need CPAP for VERNON and further CV risk reduction. -Continue ASA, BB, Warfarin; Consider Lipid Panel to evaluate need for Statin. -Continue telemetry, supplement O2 as needed. -Cardiology will Sign off at this time, please reconsult as needed and call with any questions. Thank you for the consult. 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 insulin use: unspecified skilled nursing insulin use status Diabetes mellitus complication status: without complication Qualified Code(s): E11.9 - Type 2 diabetes mellitus without complications (4) Left leg cellulitis Current Visit: Yes Status: Acute Continue Doxy Defer to primary May benefit from Compression Stockings given chronic venous stasis dermatitis (5) Volume overload Current Visit: Yes Status: Acute Plan as above Cont IV diuresis monitor kidney function Strict I/O Check daily weights sodium/fluid restriction Qualifiers: Hypervolemia type: unspecified Qualified Code(s): E87.70 - Fluid overload, unspecified Discussion w patient/family: The assessment and plan as outlined above was discussed with the patient and/or family members who expressed understanding and agreement. All questions were answered. Thank you for involving us in the care of your patient. Please call with any questions. History of Present Illness Consult date: 11/06/18 Consult reason: chf Chief complaint: sob History of present illness: Mr. Bowen is a 53 year old male morbidly obese male with history of VERNON, not compliant with CPAP, HTN, DM, AFIB s/p atrial ablation with pacemaker placement who presents with complaint of chest pressure, increasing shortness of breath, orthopnea and worsening peripheral edema with associated weight gain. States he began swelling so much that his chronic venous stasis dermatitis began to ulcerate and ooze serous fluid. Patient does take 80mg oral lasix daily and he noted recently decreased urine output, he has been compliant with his medications but does not monitor his sodium or fluid intake. On arrival, he was hemodynamically stable and his labwork was mostly unremarkable. BNP was midly elevated at 161, troponin was negative x 2, INR was slightly supratherapeutic, CO2 was elevated at 31. He did require supplemental O2 at the time but is currently saturating well on RA and feels his breathing is improving. CXR revealed cardiomegaly with pulmonary vascular congestion. EKG revealed a junctional rhythym. Limited Echo was performed but was suboptimal d/t patients morbid obesity and most structures were poorly visualized but did reveal mildly dilated LV and atypical septal motion. The patient has been diuresed with 40mgIV BID with good UOP, Net I/O thus far is -6L. Past Med Surg Social Fam HX - Past Medical History Medical history: atrial fibrillation, diabetes Additional medical history: pacemaker Psychiatric history: no psych history - Past Surgical History Surgical History: appendectomy Additional surgical history: HEART CATH NO STENTS, MAZE 2006 - Social History Smoking Status: Former smoker Smokeless Tobacco Status: No Alcohol use: rarely Drug use: none - Family History Mother Living Status: Hx Family Cardiac Disorders: Yes (AFIB) Hx Family Endocrine Disorder: Yes (diabetes) Hx Family Psychosocial Disorders: Yes (Dementia) Hx Family Medical Disorders: Yes (HTN) Father Living Status: Hx Family Endocrine Disorder: Yes (DM) Medications and Allergies Aspirin Enteric Coated [Aspirin EC] 81 mg PO QAM 02/06/15 [History] Carvedilol [Coreg] 25 mg PO BID 02/06/15 [History] Furosemide [Lasix] 40 mg PO BID 02/06/15 [History] Gabapentin [Neurontin] 100 mg PO HS 04/16/18 [History] Tamsulosin [Flomax] 0.4 mg PO DAILY 11/03/18 [History] Warfarin [Coumadin] 5 mg PO MOTUTHSA 11/03/18 [History] GlipiZIDE [Glipizide Xl] 5 mg PO DAILY 11/06/18 [History] Metformin HCl [Glucophage] 1,000 mg PO BID 11/06/18 [History] Warfarin [Coumadin] 2.5 mg PO SUWEFR 11/06/18 [History] Allergy/AdvReac Type Severity Reaction Status Date / Time No Known Allergies Allergy Verified 04/16/18 17:16 All Systems Review: The remainder of the systems were reviewed and are negative Physical Examination Other: Gen: alert and oriented, NAD, Vitals noted. Morbidly Obese. Head:atraumatic normocephalic Eyes: anicteric sclera, EOMI Neck: Thick, tachea midline, no thyromegaly or lymphadenopathy CV: distant muffled heart sounds, normal S1 and S2, no obvious murmurs gallops rubs, RRR Resp: Diminished breath sounds bibasilar, no wheezing rales rhonchi Abd: obese, distended, nontender, no organomegaly, no hepatojugular reflex Ext: +3 pretibial pitting edema, venous stasis dermatitis changes noted, dressing in place left leg, C/D/I, DP/TP pulses intact Results 11/03/18 19:33 11/06/18 00:59 Lab Results 11/06/18 11/06/18 00:59 00:59 INR 1.8 Sodium 136 Potassium 3.8 Chloride 97 L Carbon Dioxide 30 H BUN 21 H Creatinine 1.12 Glucose 196 H Calcium 9.3 Consult Discharge Plan - Plan Referrals: Nitish Mahoney DO [Primary Care Provider] - 11/10/18 8:45 am () Cardiac Rehab - Cardiac Rehab Cardiac Rehab: Phase I consult completed. Patient was educated on why Cardiac Rehabilitation is beneficial to his/her health. Participating in a cardiac rehabilitation can improve the following: strengthen your heart, improve ejection fraction, weight reduction, decrease cholesterol levels, lower blood pressure, lower blood sugar, improve stamina, and enhance self-image. If he/she has any questions, they were instructed to call [facility] at [phone]. <Mariana Cintron - Last Filed: 11/06/18 17:33> Date of Encounter: 11/06/18 - Attending Attestation I examined this patient and my medical decision-making was reviewed with the Resident Physician. I agree with the documented findings, disposition and treatment plan as described. Mr. Bowen presents with acute on chronic diastolic CHF exacerbation. Admits to dietary sodium indiscretion. He is noncompliant with CPAP for severe VERNON. Reviewed echo images demonstrating normal LV systolic function. However, right heart not optimally evaluated. Recommend optimizing IV diuresis before considering discharge. Also recommend higher maintenance PO lasix dosing. No further testing warranted at this time. Recommend outpatient follow up. Assessment and Plan Discussion w patient/family: The assessment and plan as outlined above was discussed with the patient and/or family members who expressed understanding and agreement. All questions were answered. Thank you for involving us in the care of your patient. Please call with any questions. History of Present Illness History of present illness: Mr. Bowen is a 53 year old male All Systems Review: The remainder of the systems were reviewed and are negative Physical Examination Vital Signs, Last 4 Hours Temp Pulse Resp BP Pulse Ox 11/06/18 16:02 97.7 F 63 16 124/82 95 Results 11/03/18 19:33 11/06/18 00:59 Lab Results 11/06/18 11/06/18 00:59 00:59 INR 1.8 Sodium 136 Potassium 3.8 Chloride 97 L Carbon Dioxide 30 H BUN 21 H Creatinine 1.12 Glucose 196 H Calcium 9.3 Cardiac Rehab - Cardiac Rehab Cardiac Rehab: Phase I consult completed. Patient was educated on why Cardiac Rehabilitation is beneficial to his/her health. Participating in a cardiac rehabilitation can improve the following: strengthen your heart, improve ejection fraction, weight reduction, decrease cholesterol levels, lower blood pressure, lower blood sugar, improve stamina, and enhance self-image. If he/she has any questions, they were instructed to call [facility] at [phone].
--- NOTE | 2018-11-06 16:36 | Electrocardiograph Report ---
[place] [facility] Test Date: 2018-11-03 Pat Name: Darrell Bowen Department: EXAM1 Room: 3B43 Gender: M User Experience Developer: : [id number] Requested By: Isak Cheung Order Number: [id number] Reading MD: Nitish Mahoney Measurements Intervals [place] Rate: 71 P: [place]: QRS: -77 QRSD: 165 T: 75 QT: 440 QTc: 479 Interpretive Statements Accelerated junctional rhythm Nonspecific IVCD with LAD Left ventricular hypertrophy Electronically Signed On 11-06-2018 16:35:03 EDT by Nitish Mahoney
[2018-11-06] MEDS: Silvasorb 44.4 ML TUBE TP SCH (17:41)
[2018-11-06] MEDS ORDERED: *HR* Warfarin 5 MG TABLET PO ONE (18:00)
[2018-11-07 05:13] LABS: Basophils % 0.2 %; Eosinophils # 0.3 K/mcL (0.0-0.6); Eosinophils % 3.2 %; Hematocrit 43.8 % (37.5-50.1); Hemoglobin 14.1 g/dL (12.9-16.9); Immature Granulocytes % 0.6 % (0-4); Lymphocytes # 1.4 K/mcL (0.6-4.6); Lymphocytes % 17.3 %; Mean Corpuscular HGB Conc 32.2 g/dL (31.6-35.5); Mean Corpuscular Hemoglobin 31.7 pg (28.0-33.3); Mean Corpuscular Volume 98.4 fL (83.0-100.0); Mean Platelet Volume 9.9 fL (9.4-12.4); Monocytes % 11.7 %; Neutrophils # 5.4 K/mcL (1.6-8.9); Platelet Count 255 K/mcL (140-400); Red Blood Count 4.45 M/mcL (4.19-5.50); Red Cell Distribution Width 14.1 % (11.5-14.5); White Blood Count 8.1 K/mcL (4.3-11.1)
[2018-11-07 05:21] LABS: INR 1.8; Prothrombin Time 20.9 Seconds (9.4-12.1)
[2018-11-07 05:31] LABS: BUN/Creatinine Ratio 19 (6-26); Blood Urea Nitrogen 21 mg/dL (6-20); Calcium 9.2 mg/dL (8.6-10.3); Carbon Dioxide 33 mEq/L (23-29); Chloride 97 mEq/L (98-107); Glucose 164 mg/dL (70-105); Osmolality,Calculated 289 (280-300); Potassium 3.8 mEq/L (3.5-5.1); Sodium 136 mEq/L (136-145); eGFR For African Americans > 60 (> 60); eGFR For Non-African Americans > 60 (> 60)
--- NOTE | 2018-11-07 09:01 | Internal Med Progress Note ---
<Tatiana Martinez - Last Filed: 11/07/18 08:55> Hospitalist Progress Note - Encounter Date of Encounter: 11/07/18 Time of Encounter: 08:36 - Subjective Interval History: Mr. Whitley was examined sitting up in bed. He says that his dyspnea and chest tightness has improved since admission. His legs are less swollen and his blister are healing well and no longer painful. dressing C/D/I. He complains of no dyspnea, chest pain, palpitations, nausea, vomiting, diarrhea, cough, lightheadedness, dizziness. - Exam Vitals: Temp Pulse Resp BP Pulse Ox 97.9 F 70 15 138/91 95 11/07/18 08:13 11/07/18 08:13 11/07/18 08:13 11/07/18 08:13 11/07/18 08:13 Exam: General: Morbidly obese man sitting up in bed in no acute distress. Skin: Hyperpigmented velvety skin at the nape of his neck. A large 5 cm circular pink colored lesion with scaly skin on the lateral aspect of his right lower leg. Multiple hyperkeratotic and scaly lesions on the extensor surfaces of his elbows, forearms and torso. HEENT: Moist mucous membranes. No conjunctivae pallor. Neck: No lymphadenopathy. No JVD. No carotid bruits. No palpable thyroid. Chest: Diminished thoracic expansion. Improved air exchange compared to yesterday's exam. Heart: Normal S1 & S2; rhythmic. Abdomen: Protuberant, soft and non-tender to palpation. No peritoneal reaction. Extremities: 3+ pitting edema of both lower extremities with mild erythema noted on the left. Skin breakdown on the left leg is erythematous, dressing C/D/I. No drainage visualized. Neurological: Awake, alert and oriented to person, place and time. No focal deficits. - Assessment and Plan (1) Chest pain Status: Acute Assessment and Plan: Cardiac workup completed. TTE found LVEF 50-55% and mild LV enlargemnet, poor study due to body habitus. Possibel diastolic HF secondary to abesity and food choices. Troponins negative x2. Cardiology cleared and recommended follow up with outpatient cardiology. - Stress test- denied because patient cannot lie flat - Treatment of CHF as noted -edfer management to outpatient cardiology (2) Acute heart failure Status: Acute Assessment and Plan: Echocardiogram done showing LVEF 50-55% , limited exam due to body habitus, indeterminate diastolic function, paced rhythm, valves not well visualized. BNP elevated 167 on admission, chest x-ray with cardiomegaly and pulm vasc congestion. Good urine output, not at dry weight yet, still having some symptoms of dyspnea but states they are his baseline. Having oxygen desaturation at night. Though of note, he does have VERNON and does not wear CPAP and this is most likely cause of O2 desats at night. Fluid restriction diet Continue Lasix monitor I/Os. (3) Diabetes Status: Acute (4) Left leg cellulitis Status: Acute Assessment and Plan: Suspected infection with LE Edema. Continue Doxycycline and diuresis as above (5) Tinea corporis Status: Acute Assessment and Plan: topical clotrimazole (6) Atrial fibrillation, chronic Status: Acute Assessment and Plan: Coumadin, coreg, rate controlled. - Time Spent with Patient Total time spent is greater than 50% in coordination of care (as documented) at patient's floor/unit and/or counseling patient: Internal Medicine: Result - Labs CBC & Chem 7: 11/07/18 04:36 11/07/18 04:36 Labs: Short CBC 11/07/18 Range/Units 04:36 WBC 8.1 (4.3-11.1) K/mcL Hgb 14.1 (12.9-16.9) g/dL Hct 43.8 (37.5-50.1) % Plt Count 255 (140-400) K/mcL Neutrophils # 5.4 (1.6-8.9) K/mcL BMP 11/07/18 04:36 Sodium 136 Potassium 3.8 Chloride 97 L Carbon Dioxide 33 H BUN 21 H Creatinine 1.13 Glucose 164 H Calcium 9.2 - ABG Interpretation ABG results: PT/INR, D-dimer PT 20.9 Seconds (9.4-12.1) H 11/07/18 04:36 Consult Discharge Plan - Plan Instructions: Furosemide (By mouth), Heart Failure (DC), Chronic Wound Care (DC) Additional Instructions: Please keep a close check on your weight. Weigh yourself daily at the same time and note each weight to take to your hospital follow up appointment. If you are steadily increasing weight or have gained more than 4 lbs in a single day, and there is no cause from diet for weight change, call PCP to set up appointment. Referrals: Nitish Mahoney DO [Primary Care Provider] - 11/10/18 8:45 am () Prescriptions: Doxycycline 100 mg PO BID 6 Days #12 capsule Prescription Printed Furosemide [Lasix] 60 mg PO BID 7 Days #14 tablet Prescription Printed <Gary Juarez - Last Filed: 11/08/18 01:03> Hospitalist Progress Note - Encounter Date of Encounter: 11/08/18 - Exam Vitals: Temp Pulse Resp BP Pulse Ox 97.9 F 64 16 128/81 96 11/07/18 15:42 11/07/18 15:42 11/07/18 15:42 11/07/18 15:42 11/07/18 15:42 - Assessment and Plan (1) Chest pain Status: Acute (2) Acute heart failure Status: Acute (3) Diabetes Status: Acute (4) Tinea corporis Status: Acute (5) Atrial fibrillation, chronic Status: Acute (6) Left leg cellulitis Status: Acute - Time Spent with Patient Total time spent is greater than 50% in coordination of care (as documented) at patient's floor/unit and/or counseling patient: Internal Medicine: Result - Labs CBC & Chem 7: 11/07/18 04:36 11/07/18 04:36 Labs: Short CBC 11/07/18 Range/Units 04:36 WBC 8.1 (4.3-11.1) K/mcL Hgb 14.1 (12.9-16.9) g/dL Hct 43.8 (37.5-50.1) % Plt Count 255 (140-400) K/mcL Neutrophils # 5.4 (1.6-8.9) K/mcL BMP 11/07/18 04:36 Sodium 136 Potassium 3.8 Chloride 97 L Carbon Dioxide 33 H BUN 21 H Creatinine 1.13 Glucose 164 H Calcium 9.2 - ABG Interpretation ABG results: PT/INR, D-dimer PT 20.9 Seconds (9.4-12.1) H 11/07/18 04:36 - Attending Attestation I saw evaluated and examined this patient and reviewed objective data including labs and my medical decision-making was reviewed with the Resident Physician and Medical Student. I agree with the documented findings, disposition and treatment plan as described except to any changes set forth below. We independently had [id number] contact with the patient. <Tatiana Martinez - Last Filed: 11/07/18 08:55> (1) Chest pain Qualifiers: Chest pain type: unspecified Qualified Code(s): R07.9 - Chest pain, unspecified (2) Acute heart failure Qualifiers: Heart failure type: diastolic Qualified Code(s): I50.31 - Acute diastolic (congestive) heart failure (3) Diabetes Qualifiers: Diabetes mellitus type: type 2 Diabetes mellitus senior living insulin use: unspecified tank terminal gauger insulin use status Diabetes mellitus complication status: without complication Qualified Code(s): E11.9 - Type 2 diabetes mellitus without complications <Gary Juarez - Last Filed: 11/08/18 01:03> (1) Chest pain Qualifiers: Chest pain type: unspecified Qualified Code(s): R07.9 - Chest pain, unspecified (2) Acute heart failure Qualifiers: Heart failure type: diastolic Qualified Code(s): I50.31 - Acute diastolic (congestive) heart failure (3) Diabetes Qualifiers: Diabetes mellitus type: type 2 Diabetes mellitus tank terminal gauger insulin use: unspecified senior living insulin use status Diabetes mellitus complication status: without complication Qualified Code(s): E11.9 - Type 2 diabetes mellitus without complications
[2018-11-07] MEDS ORDERED: Furosemide 20 MG/2 ML VIAL IVP ONE (09:28)
[2018-11-07] MEDS: Insulin LISPRO 300 UNITS/3 ML VIAL SQ SCH ×3 (09:50→17:13)
[2018-11-07] MEDS: Furosemide 40 MG/4 ML VIAL IVP SCH (09:51)
[2018-11-07] MEDS: Doxycycline 100 MG CAPSULE PO SCH (09:51)
[2018-11-07] MEDS: Gabapentin 100 MG CAPSULE PO SCH (09:51)
[2018-11-07] MEDS: Silvasorb 44.4 ML TUBE TP SCH (09:51)
[2018-11-07] MEDS: Clotrimazole 1% CRM 15 GM TUBE TP SCH (09:51)
[2018-11-07] MEDS: Aspirin Enteric Coated 81 MG Tablet PO SCH (09:51)
--- NOTE | 2018-11-07 11:56 | Discharge Summary ---
<Gabbi Loredo - Last Filed: 11/07/18 15:20> - NOTES TO OUTPATIENT PROVIDER Notes to Outpatient Provider: Patient has been instructed to weigh himself at the same time each day and follow-up with PCP for unexplained weight gain. We have increased furosemide to 60 mg for one week from prescribed dose of 40 mg. Cardiology recommended addition of ACEi/ARB. Date of Encounter: 11/07/18 Time of Encounter: 09:25 - Discharge Diagnosis (1) Acute heart failure Priority: Primary Status: Acute Qualifiers: Heart failure type: diastolic Qualified Code(s): I50.31 - Acute diastolic (congestive) heart failure (2) Chest pain Priority: Secondary Status: Acute Qualifiers: Chest pain type: unspecified Qualified Code(s): R07.9 - Chest pain, unspecified (3) Diabetes Priority: Secondary Status: Acute Qualifiers: Diabetes mellitus type: type 2 Diabetes mellitus assisted insulin use: unspecified emt intermediate insulin use status Diabetes mellitus complication status: without complication Qualified Code(s): E11.9 - Type 2 diabetes mellitus without complications (4) Left leg cellulitis Priority: Secondary Status: Acute (5) Tinea corporis Priority: Secondary Status: Acute (6) Atrial fibrillation, chronic Priority: Secondary Status: Acute Hospital course: Mr. Bowen is a 53 year old male with past medical history of obstructive sleep apnea, hypertension, diabetes, and atrial fibrillation who presented with complaint of chest tightness, dyspnea, and worsening lower extremity swelling. Lower extremity swelling was severe enough to cause draining blisters. He was taking 80 mg furosemide daily at this time. Chest x-ray showed cardiomegaly with pulmonary vascular congestion. Serum troponin was negative. EKG showed junctional rhythm which was new in onset compared with earlier studies. He felt improved after one tablet of nitroglycerin, loading dose of aspirin, 1 dose of furosemide IV. He continued to have bilateral lower extremity edema. Echocardiogram was a poor study due to patient body habitus. This did show LVEF 5055 percent, indeterminate diastolic function, paced rhythm, bowels were not well visualized. Stress test was recommended but not possible to perform due to patient inability to lie flat. Cardiology was consulted and did not recommend further cardiac testing at this time. They recommended follow-up as outpatient, continuation of aspirin, beta shima, warfarin. During visit, patient was on fluid restriction diet, Lasix, and I/Os were monitored. Patient had suspicion for infection superimposed on lower extremity edema. He was put on doxycycline 100 mg 10 days. He also had tinea corporis which was treated with topical clotrimazole. Discharge discussed with: patient - Time Spent with Patient Total time spent providing and/or coordinating discharge services: Time spent: Less than 30 minutes - Discharge Medications Prescriptions: New Doxycycline 100 mg PO BID 6 Days #12 capsule Furosemide [Lasix] 60 mg PO BID 7 Days #14 tablet Clotrimazole 1% CRM [Lotrimin 1%] 1 appl TP BID #0 tube Silvasorb 1 appl TP DAILY tube Continued Carvedilol [Coreg] 25 mg PO BID Aspirin Enteric Coated [Aspirin EC] 81 mg PO QAM Gabapentin [Neurontin] 100 mg PO HS Tamsulosin [Flomax] 0.4 mg PO DAILY Warfarin [Coumadin] 5 mg PO MOTUTHSA GlipiZIDE [Glipizide Xl] 5 mg PO DAILY Metformin HCl [Glucophage] 1,000 mg PO BID Warfarin [Coumadin] 2.5 mg PO SUWEFR Discontinued Furosemide [Lasix] 40 mg PO BID Home Medications: Aspirin Enteric Coated [Aspirin EC] 81 mg PO QAM 02/06/15 [History] Carvedilol [Coreg] 25 mg PO BID 02/06/15 [History] Gabapentin [Neurontin] 100 mg PO HS 04/16/18 [History] Tamsulosin [Flomax] 0.4 mg PO DAILY 11/03/18 [History] Warfarin [Coumadin] 5 mg PO MOTUTHSA 11/03/18 [History] GlipiZIDE [Glipizide Xl] 5 mg PO DAILY 11/06/18 [History] Metformin HCl [Glucophage] 1,000 mg PO BID 11/06/18 [History] Warfarin [Coumadin] 2.5 mg PO SUWEFR 11/06/18 [History] Clotrimazole 1% CRM [Lotrimin 1%] 1 appl TP BID #0 tube 11/07/18 [Rx] Doxycycline 100 mg PO BID 6 Days #12 capsule 11/07/18 [Rx] Furosemide [Lasix] 60 mg PO BID 7 Days #14 tablet 11/07/18 [Rx] Silvasorb 1 appl TP DAILY tube 11/07/18 [Rx] Allergies/Adverse Reactions: Allergy/AdvReac Type Severity Reaction Status Date / Time No Known Allergies Allergy Verified 04/16/18 17:16 Date of admission: 11/05/18 13:44 Primary care physician: Nitish Mahoney DO Consults: 11/03/18 22:30 Consult to Wound Care [CONS] Routine Reason for Consult: left lower leg swelling causing skin break down and drainage Call Completed: No 11/06/18 08:39 Consult to Nurse Navigator [CONS] Routine Comment: CHF 11/06/18 13:56 Consult to Cardiology [CONS] Routine Comment: Consulting Provider: Card[facility] [place] Reason for Consult: chest pain, dyspnea, and LE edema; echocardiogram limited by body habitus Call Completed: No Discharging clinician: Gabbi Loredo Anticipated date of discharge: 11/07/18 - Constitutional Vitals: Temp Pulse Resp BP Pulse Ox 97.7 F 92 15 130/77 95 11/07/18 11:17 11/07/18 11:17 11/07/18 11:17 11/07/18 11:17 11/07/18 11:17 Exam: GENERAL: awake, conversant. In no acute distress. EYES: Anicteric, clear sclerae. Pupils equal and reactive to light bilaterally. HENT: Atraumatic, normocephalic. Moist mucosa. NECK: Normal carotid pulses. Supple. CV: Regular rate and rhythm. Normal S1 and S2. No murmurs, clicks, or gallops. RESPIRATORY: Clear to auscultation bilaterally. No wheezes, rhonchi, or rales. ABDOMEN: Soft, nontender, nondistended. Normal bowel sounds. EXTREMITIES: Pitting edema from yesterday has improved to approximately 1+ pitting edema. Peripheral pulses were 2/4. Capillary refill <2 sec SKIN: There was no drainage present from skin breakdown on the left leg. Erythema is improving. No rashes present. - Patient Status Disposition: Home, Self-Care Condition: Good Functional capacity at discharge: independent ambulation Overall status at discharge: patient is back to baseline - Discharge Instructions Instructions: Furosemide (By mouth), Heart Failure (DC), Chronic Wound Care (DC) Follow Up With: Nitish Mahoney DO [Primary Care Provider] - 11/10/18 8:45 am () Forms: ED Satisfaction Letter Additional Instructions: Please keep a close check on your weight. Weigh yourself daily at the same time and note each weight to take to your hospital follow up appointment. If you are steadily increasing weight or have gained more than 4 lbs in a single day, and there is no cause from diet for weight change, call PCP to set up appointment. - Diet and Activity Activity: increase activity as tolerated Diet: advance to your usual diet <Gary Juarez - Last Filed: 11/08/18 00:56> Date of Encounter: 11/08/18 - Discharge Diagnosis (1) Chest pain Status: Acute Qualifiers: Chest pain type: unspecified Qualified Code(s): R07.9 - Chest pain, unspeci fied (2) Acute heart failure Status: Acute Qualifiers: Heart failure type: diastolic Qualified Code(s): I50.31 - Acute diastolic (congestive) heart failure (3) Diabetes Status: Acute Qualifiers: Diabetes mellitus type: type 2 Diabetes mellitus emt intermediate insulin use: unspecified emt intermediate insulin use status Diabetes mellitus complication status: without complication Qualified Code(s): E11.9 - Type 2 diabetes mellitus without complications (4) Tinea corporis Status: Acute (5) Atrial fibrillation, chronic Status: Acute (6) Left leg cellulitis Status: Acute Hospital course: Mr. Bowen is a 53 year old male - Time Spent with Patient Total time spent providing and/or coordinating discharge services: Date of admission: 11/05/18 13:44 Primary care physician: Nitish Mahoney DO Consults: 11/03/18 22:30 Consult to Wound Care [CONS] Routine Reason for Consult: left lower leg swelling causing skin break down and drainage Call Completed: No 11/06/18 08:39 Consult to Nurse Navigator [CONS] Routine Comment: CHF 11/06/18 13:56 Consult to Cardiology [CONS] Routine Comment: Consulting Provider: Cardiology [place] Reason for Consult: chest pain, dyspnea, and LE edema; echocardiogram limited by body habitus Call Completed: No - Constitutional Vitals: Temp Pulse Resp BP Pulse Ox 97.9 F 64 16 128/81 96 11/07/18 15:42 11/07/18 15:42 11/07/18 15:42 11/07/18 15:42 11/07/18 15:42 - Attending Attestation I saw evaluated and examined this patient and reviewed objective data including labs and my medical decision-making was reviewed with the Resident Physician. I agree with the documented findings, disposition and treatment plan as described except to any changes set forth below. We independently had [id number] contact with the patient.
[2018-11-07 15:49] VITALS: BP 128/81
[2018-11-07] MEDS ORDERED: *HR* Warfarin 5 MG TABLET PO ONE (18:00)
== END 2018-11-07 17:30 | disposition home or self-care (01) | DRG 292 ==
LOC: EMEROOARM 19:17 → 3BNU 19:17 → SUATTDRO 20:52 → 3BNU 22:02
PROVIDERS: ADMIT Internal Medicine; ATTEND Student in an Organized Health Care Education/Training Program